=== PATIENT | female | born 1965 | race Caucasian/White ===

== ENCOUNTER 2022-02-13 15:12 | Observation (INO) | payer OTHER, BC ==
[2022-02-13] VITALS (22 sets, daily range): BP systolic 123–197; BP diastolic 78–104
[~2022-02-13] VITALS: Ht 160 cm; Wt 89.0 kg
[2022-02-13] MEDS ORDERED: XANAX0.5 MG PO (15:49)
[2022-02-13 16:13] LABS: GFR FOR AFR.AMER. > 60 ML/MIN (>=60 (CALC)); GFR OTHER RACES > 60 ML/MIN (>=60 (CALC))
[2022-02-13 16:18] LABS: HEMATOCRIT 48.5 % (37.0-47.0); HEMOGLOBIN 15.9 g/dl (12.0-16.0); IMMATURE GRANULOCYTES 0.3 % (0.0-5.0); MEAN CELL VOLUME 96.8 fL CALC (80.0-100.0); MEAN CORPUSCULAR HGB 31.7 pG CALC (26.0-32.0); MEAN CORPUSCULAR HGB CONC 32.8 g/dL CAL (32.0-36.0); NEUT# 25.1 thou/uL (2.00-7.15); RED BLOOD COUNT 5.01 mill/uL (4.20-5.60); RED CELL DISTRI WIDTH 13.4 % (11.5-15.5)
[2022-02-13 16:27] LABS: LIPASE 69 u/l (23-300)
[2022-02-13 16:30] LABS: ALBUMIN 4.7 g/dL (3.2-5.0); ALKALINE PHOSPHATASE 115 u/l (38-126); ANION GAP 16 (6-22 (CALC)); BILIRUBIN, TOTAL 0.7 mg/dL (0.0-1.4); BUN 9 mg/dL (7-17); BUN/CREATININE RATIO 18 (12-20 (CALC)); CARBON DIOXIDE 19 mmol/l (22-30); CHLORIDE 107 mmol/l (95-108); CREATININE 0.5 mg/dL (0.5-1.0); GFR FOR AFR.AMER. > 60 ML/MIN (>=60 (CALC)); GFR OTHER RACES > 60 ML/MIN (>=60 (CALC)); POTASSIUM 4.3 mmol/l (3.5-5.1); SGOT/AST 25 u/l (14-36); SODIUM 137 mmol/l (137-146); TOTAL PROTEIN 7.8 g/dL (6.3-8.2)
[2022-02-13] MEDS ORDERED: PROVENTIL0.083 % IN (17:19)
[2022-02-13 18:40] LABS: URINE BILIRUBIN - DIPSTICK NEGATIVE (NEGATIVE); URINE BLOOD DIPSTICK TRACE-INTACT (NEGATIVE); URINE COLOR YELLOW; URINE GLUCOSE - DIPSTICK NEGATIVE (NEGATIVE); URINE KETONE NEGATIVE (NEGATIVE); URINE LEUK ESTERASE NEGATIVE (NEGATIVE); URINE PROTEIN - DIPSTICK NEGATIVE (NEG-TRACE); URINE SPECIFIC GRAVITY <=1.005; URINE UROBILINOGEN - DIPSTICK 0.2 E.U./dL (0.2)
[2022-02-13 18:46] LABS: URINE NITRITE - DIPSTICK NEGATIVE (Negative)
[2022-02-14] VITALS (7 sets, daily range): BP systolic 118–147; BP diastolic 63–83
[2022-02-14 06:01] LABS: HEMATOCRIT 46.4 % (37.0-47.0); HEMOGLOBIN 15.2 g/dl (12.0-16.0); MEAN CELL VOLUME 96.7 fL CALC (80.0-100.0); MEAN CORPUSCULAR HGB 31.7 pG CALC (26.0-32.0); MEAN CORPUSCULAR HGB CONC 32.8 g/dL CAL (32.0-36.0); RED BLOOD COUNT 4.8 mill/uL (4.20-5.60); RED CELL DISTRI WIDTH 13.4 % (11.5-15.5)
[2022-02-14 06:38] LABS: ANION GAP 13 (6-22 (CALC)); BUN 8 mg/dL (7-17); BUN/CREATININE RATIO 14 (12-20 (CALC)); CARBON DIOXIDE 22 mmol/l (22-30); CHLORIDE 102 mmol/l (95-108); CREATININE 0.6 mg/dL (0.5-1.0); GFR FOR AFR.AMER. > 60 ML/MIN (>=60 (CALC)); GFR OTHER RACES > 60 ML/MIN (>=60 (CALC)); MAGNESIUM 1.7 mg/dL (1.6-2.3); POTASSIUM 4.2 mmol/l (3.5-5.1); SODIUM 133 mmol/l (137-146)
[2022-02-15 03:15] VITALS: BP 136/73
[2022-02-15 05:56] LABS: HEMATOCRIT 40.6 % (37.0-47.0); IMMATURE GRANULOCYTES 0.4 % (0.0-5.0); MEAN CELL VOLUME 98.3 fL CALC (80.0-100.0); MEAN CORPUSCULAR HGB CONC 32.5 g/dL CAL (32.0-36.0); NEUT# 14.47 thou/uL (2.00-7.15); RED BLOOD COUNT 4.13 mill/uL (4.20-5.60); RED CELL DISTRI WIDTH 13.6 % (11.5-15.5)
[2022-02-15 05:58] LABS: ALKALINE PHOSPHATASE 86 u/l (38-126); ANION GAP 11 (6-22 (CALC)); BUN 5 mg/dL (7-17); BUN/CREATININE RATIO 9 (12-20 (CALC)); CARBON DIOXIDE 23 mmol/l (22-30); CHLORIDE 105 mmol/l (95-108); CREATININE 0.6 mg/dL (0.5-1.0); GFR FOR AFR.AMER. > 60 ML/MIN (>=60 (CALC)); GFR OTHER RACES > 60 ML/MIN (>=60 (CALC)); LIPASE 18 u/l (23-300); POTASSIUM 3.5 mmol/l (3.5-5.1); SGOT/AST 19 u/l (14-36); SODIUM 135 mmol/l (137-146); TOTAL PROTEIN 6.4 g/dL (6.3-8.2)
[2022-02-15 06:02] LABS: ALBUMIN 3.4 g/dL (3.2-5.0)
[2022-02-15 06:09] LABS: HEMOGLOBIN 13.2 g/dl (12.0-16.0)
[2022-02-15 06:10] VITALS: BP 135/73
[2022-02-15] MEDS ORDERED: CARAFATE1 GM PO (10:39)
[2022-02-15] MEDS ORDERED: PROTONIX40 MG PO (10:39)
[2022-02-15] MEDS ORDERED: PEPCID20 MG PO (10:40)
[2022-02-15] MEDS ORDERED: CIPROFLOXACN500 MG PO (10:40)
[2022-02-15] MEDS ORDERED: METRONIDAZOLE500 MG PO (10:41)
[2022-02-15 11:27] VITALS: BP 136/74
== END 2022-02-15 12:25 | disposition home or self-care (01) | DRG 392 ==
LOC: ED 15:12 → MS2 19:23
PROVIDERS: Family Medicine; Nurse Practitioner Family; ADMIT Internal Medicine; ATTEND Internal Medicine
DX: R10.13 Epigastric pain (principal); D72.829 Elevated white blood cell count, unspecified; I10 Essential (primary) hypertension; J45.909 Unspecified asthma, uncomplicated; F41.9 Anxiety disorder, unspecified; J98.4 Other disorders of lung; E66.9 Obesity, unspecified; F17.200 Nicotine dependence, unspecified, uncomplicated; Z90.49 Acquired absence of other specified parts of digestive tract; Z20.822 Contact with and (suspected) exposure to COVID-19
CPT/HCPCS: G0378; J1650; Q9967; S0164

== ENCOUNTER 2022-04-19 02:03 | Emergency (ER) | payer OTHER, BC ==
[~2022-04-19] VITALS: Ht 160 cm; Wt 93.0 kg
[2022-04-19] VITALS (7 sets, daily range): BP systolic 145–171; BP diastolic 87–103
[~2022-04-19 02:03] MED LIST: CARAFATE1 GM PO; CIPROFLOXACN500 MG PO; METRONIDAZOLE500 MG PO; PEPCID20 MG PO; PROTONIX40 MG PO; PROVENTIL0.083 % IN; XANAX0.5 MG PO
[2022-04-19 02:34] LABS: BASO% 0.5 % (0-3); HEMATOCRIT 44.4 % (37.0-47.0); HEMOGLOBIN 14.2 g/dl (12.0-16.0); IMMATURE GRANULOCYTES 0.2 % (0.0-5.0); LYMPH% 30.4 % (15-41); MEAN CELL VOLUME 94.9 fL CALC (80.0-100.0); MEAN CORPUSCULAR HGB 30.3 pG CALC (26.0-32.0); MONO% 8.3 % (2-13); NEUT# 7.51 thou/uL (2.00-7.15); NEUT% 58.6 % (42-76); RED BLOOD COUNT 4.68 mill/uL (4.20-5.60); RED CELL DISTRI WIDTH 12.7 % (11.5-15.5)
[2022-04-19 02:39] LABS: ALKALINE PHOSPHATASE 83 u/l (38-126); BUN 13 mg/dL (7-17); BUN/CREATININE RATIO 24 (12-20 (CALC)); CARBON DIOXIDE 23 mmol/l (22-30); CHLORIDE 111 mmol/l (95-108); CREATININE 0.6 mg/dL (0.5-1.0); GFR FOR AFR.AMER. > 60 ML/MIN (>=60 (CALC)); GFR OTHER RACES > 60 ML/MIN (>=60 (CALC)); SGOT/AST 30 u/l (14-36); TOTAL PROTEIN 7.6 g/dL (6.3-8.2)
[2022-04-19 02:41] LABS: POTASSIUM 3.9 mmol/l (3.5-5.1)
[2022-04-19 02:48] LABS: MYOGLOBIN 12 ng/mL (0 - 62)
[2022-04-19 02:54] LABS: ALBUMIN 4.4 g/dL (3.2-5.0); ANION GAP 12 (6-22 (CALC)); BILIRUBIN, TOTAL 0.4 mg/dL (0.0-1.4); SODIUM 142 mmol/l (137-146)
[2022-04-19] MEDS ORDERED: LOSARTAN POTASS50 MG PO (03:51)
== END 2022-04-19 04:14 | disposition home or self-care (01) | DRG 305 ==
LOC: ED 02:03
PROVIDERS: Family Medicine
DX: I10 Essential (primary) hypertension (principal); Z72.0 Tobacco use

== ENCOUNTER 2024-01-27 22:14 | Emergency (ER) | payer BC ==
[~2024-01-27] VITALS: Ht 160 cm; Wt 87.0 kg
[~2024-01-27 22:14] MED LIST changes: +LOSARTAN POTASS50 MG PO
[2024-01-27] MEDS ORDERED: ACETAMINOPHEN 500 MG TAB PO ONE (22:30)
[2024-01-27] MEDS ORDERED: IBUPROFEN 600 MG/TAB PO ONE (22:30)
[2024-01-27] MEDS ORDERED: LIDOCAINE VISCOUS 2% 15 ML UDC PO ONE (22:30)
[2024-01-27 23:12] VITALS: BP 150/85
[2024-01-27] MEDS ORDERED: predniSONE 20 MG/TAB PO ONE (23:20)
[2024-01-27] MEDS ORDERED: MEDDOSEPAK PO (23:21)
[2024-01-27 23:30] VITALS: BP 130/80
[2024-01-27 23:44] VITALS: BP 130/80
== END 2024-01-27 23:44 | disposition home or self-care (01) | DRG 153 ==
LOC: ED 22:14
DX: J04.0 Acute laryngitis (principal); I10 Essential (primary) hypertension; F41.9 Anxiety disorder, unspecified; F17.200 Nicotine dependence, unspecified, uncomplicated; Z20.822 Contact with and (suspected) exposure to COVID-19